=== PATIENT | male | born 1990 | race Caucasian/White ===

== ENCOUNTER 2020-01-18 20:19 | Emergency (ER) | payer OTHER ==
[~2020-01-18] VITALS: Ht 177.8 cm; Wt 90.7 kg
[2020-01-18 20:59] VITALS: BP 111/72
== END 2020-01-18 21:22 | disposition home or self-care (01) ==
LOC: ER 20:19
DX: R05 Cough (principal); R19.7 Diarrhea, unspecified; Z20.828 Contact with and (suspected) exposure to other viral communicable diseases